=== PATIENT | female | born 1955 ===

== ENCOUNTER 2016-08-29 08:41 | Emergency (ER) | payer BC, OTHER ==
[2016-08-29 09:23] VITALS: RESP 17; O2SAT 97
[2016-08-29 10:39] VITALS: TEMP 98.4
--- NOTE | 2016-08-29 11:33 | C.PDOC ---
History Of Present Illness 61 yr old female presents to the ER stating 5 days ago she was seen by PMD for URI symptoms and a cough, had a CXR which was negative for pneumonia and was treated with a cough syrup, albuterol and prednisone. Patient states today was her first day back at work and was still cough, not feeling well and her right nostril started to bleeding. States she went to [place] where he blood pressure was found to be elevated. Patient states she has no history of HTN. By the time patient arrived to the ER the nose bleed had subsided. Patient denies fever, vision changes, chest pain, SOB, wheezing, nausea, vomiting, headache, dizziness, weakness or numbness. 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 Constitutional: Negative for: Fever Eyes: Negative for: Vision Change Cardiovascular: Negative for: Chest Pain Respiratory: Negative for: Shortness of Breath, Wheezing Gastrointestinal: Negative for: Nausea, Vomiting Neurological: Negative for: Weakness, Numbness, Headache, Dizziness Physical Exam - Physical Exam Appears: Well, Non-toxic, No Acute Distress Skin: Warm, Dry, No Rash Head: Atraumatic, Normacephalic Eye(s): bilateral: Normal Inspection, PERRL, EOMI Chest: Symmetrical, No Tenderness Cardiovascular: Rhythm Regular, No Murmur Respiratory: Normal Breath Sounds, No Rales, No Rhonchi, No Stridor, No Wheezing Extremity: Normal ROM, No Swelling Neurological/Psych: Oriented x3, Normal Speech, Normal Motor ED Course And Treatment O2 Sat by Pulse Oximetry: 97 Progress Note: Patient was observed in ED. Blood pressure was checked frequently and found to be going back down without intervention. Patient was informed the cough syrup might be the cause of elevated blood pressure and was instructed to stop it immediately. Prescribed new medication to the patient and gave extra days off from work. Instructed patient to follow up with PMD for further evaluation. Disposition - Disposition Disposition: HOME/ ROUTINE Disposition Time: 11:31 Condition: STABLE Additional Instructions: Folow upwith your PMD within 1-2 days. Return to ED if feel worse. Please stop taking Bromfed. Prescriptions: Chlorpheniramine/Dextromethorp [Coricidin Hbp Cough & Cold Tab] 2 tab PO Q6 #40 tablet Instructions: Nosebleed (ED) Forms: Work Excuse - Clinical Impression Clinical Impression: Nosebleed, Abnormal blood pressure - PA / EPIC ANALYST / Resident Statement MD/DO has reviewed & agrees with the documentation as recorded. - Scribe Statement The provider has reviewed the documentation as recorded by the Scribe Hollie Chaudhary All medical record entries made by the Scribe were at my direction and personally dictated by me. I have reviewed the chart and agree that the record accurately reflects my personal performance of the history, physical exam, medical decision making, and the department course for this patient. I have also personally directed, reviewed, and agree with the discharge instructions and disposition.
[2016-08-29 11:50] VITALS: BP 135/67; PULSE 72
== END 2016-08-29 11:52 | disposition home or self-care (01) ==
LOC: C.ER 08:41
DX: R04.0 Epistaxis (principal); R03.0 Elevated blood-pressure reading, without diagnosis of hypertension

== ENCOUNTER 2017-08-07 12:35 | Emergency (ER) | payer BC ==
[2017-08-07 13:00] LABS: SQUAMOUS EPITHIAL 4 /hpf (0-5); URINE BACTERIA RARE (<OCC); URINE BILIRUBIN NEGATIVE (NEGATIVE); URINE BLOOD NEGATIVE (NEGATIVE); URINE CLARITY Clear (Clear); URINE COLOR Straw (YELLOW); URINE GLUCOSE (UA) NORMAL (Normal); URINE LEUKOCYTE ESTERASE NEG Leu/uL (Negative); URINE PROTEIN NEGATIVE (NEGATIVE); URINE UROBILINOGEN NORMAL mg/dL (0.2-1.0)
[2017-08-07 13:18] VITALS: RESP 18
[2017-08-07 13:39] LABS: BASO % 0.5 % (0.0-2.0); EOS # 0.1 K/uL (0.0-0.7); EOS % 2.2 % (0.0-4.0); HEMOGLOBIN 13.3 g/dL (11.0-16.0); LYMPH # 1.7 K/uL (1.0-4.3); LYMPH % 25.7 % (20.0-40.0); MEAN CELL VOLUME 91.3 fL (81.0-99.0); MEAN CORPUSCULAR HEMOGLOBIN 32.9 pg (27.0-31.0); MEAN PLATELET VOLUME 7.9 fL (7.2-11.7); MONO # 0.4 K/uL (0.0-0.8); MONO % 5.8 % (0.0-10.0); NEUT # 4.3 K/uL (1.8-7.0); NEUT % 65.8 % (50.0-75.0); NRBC % 0.1 % (0.0-2.0); RBC 4.04 Mil/uL (3.80-5.20); RED CELL DISTRIBUTION WIDTH 12.3 % (11.5-14.5); WHITE BLOOD COUNT 6.5 K/uL (4.8-10.8)
[2017-08-07 13:51] LABS: ALB/GLOB RATIO 1.2 (1.0-2.1); ALBUMIN 4.3 g/dL (3.5-5.0); ALT/SGPT 64 U/L (9-52); AST/SGOT 47 U/L (14-36); BLOOD UREA NITROGEN 14 mg/dL (7-17); CALCIUM 9.5 mg/dl (8.6-10.4); GFR AFRICAN-AMERICAN > 60; GFR NON-AFRICAN AMERICAN > 60; LIPASE 85 U/L (23-300)
[2017-08-07] MEDS ORDERED: Lactated Ringer's 1,000 ML IVB STA (13:55)
[2017-08-07] MEDS ORDERED: Iodixanol 320 MG/ML 100 ML BOTTLE IV ONE (14:16)
--- NOTE | 2017-08-07 15:14 | CT ---
PROCEDURE: CT Abdomen and Pelvis with intravenous contrast HISTORY: Left lower quadrant abdominal pain. History of diverticulitis. COMPARISON: None. TECHNIQUE: Multiple contiguous axial images were performed through the abdomen and pelvis with the use of intravenous contrast. Subsequently, sagittal and coronal reformatted images were obtained. Radiation dose: Total exam DLP = 413 mGy-cm. This CT exam was performed using one or more of the following dose reduction techniques: Automated exposure control, adjustment of the mA and/or kV according to patient size, and/or use of iterative reconstruction technique. FINDINGS: LOWER THORAX: Unremarkable. LIVER: Fatty infiltration of the liver. GALLBLADDER AND BILE DUCTS: Contracted and or resected gallbladder. Clinical correlation. Prominent common bile duct. PANCREAS: Unremarkable. No gross lesion or ductal dilatation. SPLEEN: Splenule. ADRENALS: Unremarkable. No mass. KIDNEYS AND URETERS: Unremarkable. No hydronephrosis. No solid mass. VASCULATURE: Unremarkable. No aortic aneurysm. BOWEL: Extensive colonic diverticulosis most prominent at the level of the sigmoid colon. Focal thickening at the level of the mid sigmoid colon with some adjacent fat stranding. These changes may represent a focal acute diverticulitis versus focal colitis. Posttreatment followup would be helpful to its exclude underlying lesion. Correlation with colonoscopy posttreatment may be helpful. Under distended descending colon. APPENDIX: Unremarkable. Normal appendix. PERITONEUM: Unremarkable. No free fluid. No free air. LYMPH NODES: Few shotty para-aortic and inguinal lymph nodes. Few shotty mesenteric lymph nodes. BLADDER: Unremarkable. REPRODUCTIVE: Unremarkable. BONES: No acute fracture. OTHER FINDINGS: None. IMPRESSION: Extensive colonic diverticulosis most prominent at the level of the sigmoid colon. Focal thickening at the level of the mid sigmoid colon with some adjacent fat stranding. These changes may represent a focal acute diverticulitis versus focal colitis. Posttreatment followup would be helpful to its exclude underlying lesion. Correlation with colonoscopy posttreatment may be helpful. Under distended descending colon. Fatty infiltration of the liver. Contracted and or resected gallbladder. Clinical correlation. Prominent common bile duct. Additional findings as above.
[2017-08-07] MEDS ORDERED: Lactated Ringer's 1,000 ML ONE (15:22)
--- NOTE | 2017-08-07 17:02 | C.PDOC ---
Time Seen by Provider: 08/07/17 13:06 Chief Complaint (Nursing): Abdominal Pain History Per: Patient Onset/Duration Of Symptoms: Days (1) Current Symptoms Are (Timing): Still Present Severity: Moderate Location Of Pain/Discomfort: LLQ Quality Of Discomfort: "Pain" Alleviating Factors: None Additional History Per: Prior Records Abnormal Vaginal Bleeding: No Past Medical History Reviewed: Historical Data, Nursing Documentation, Vital Signs Vital Signs: Last Vital Signs Temp 98.3 F 08/07/17 13:17 Pulse 58 L 08/07/17 13:17 Resp 18 08/07/17 13:17 BP 129/84 08/07/17 13:17 Pulse Ox 96 08/07/17 13:17 - Medical History PMH: Hyperthyroidism Surgical History: Cholecystectomy Family History: States: Unknown Family Hx - Social History Hx Tobacco Use: No Hx Alcohol Use: No Hx Substance Use: No - Immunization History Hx Influenza Vaccination: No Hx Pneumococcal Vaccination: No Review Of Systems Except As Marked, All Systems Reviewed And Found Negative. Constitutional: Negative for: Fever Cardiovascular: Negative for: Chest Pain Respiratory: Negative for: Shortness of Breath Gastrointestinal: Positive for: Abdominal Pain. Negative for: Vomiting, Diarrhea, Melena, Hematochezia, Hematemesis Genitourinary: Negative for: Dysuria Musculoskeletal: Negative for: Neck Pain, Back Pain Skin: Negative for: Rash Neurological: Negative for: Weakness, Numbness Physical Exam - Physical Exam Appears: Non-toxic, No Acute Distress Skin: Normal Color, Warm, Dry, No Rash Head: Atraumatic, Normacephalic Eye(s): bilateral: Normal Inspection, PERRL, EOMI Neck: Normal ROM, Supple Cardiovascular: Rhythm Regular Respiratory: Normal Breath Sounds, No Accessory Muscle Use Gastrointestinal/Abdominal: Soft, Tenderness (LLQ) Back: No CVA Tenderness Extremity: Normal ROM Neurological/Psych: Oriented x3, Normal Motor, Normal Sensation ED Course And Treatment - Laboratory Results Result Diagrams: 08/07/17 13:32 08/07/17 13:32 Lab Interpretation: No Acute Changes O2 Sat by Pulse Oximetry: 96 Pulse Ox Interpretation: Normal - CT Scan/US CT abd/pelv Other Rad Studies (CT/US): Read By Radiologist, Radiology Report Reviewed CT/US Interpretation: IMPRESSION: Extensive colonic diverticulosis most prominent at the level of the sigmoid colon. Focal thickening at the level of the mid sigmoid colon with some adjacent fat stranding. These changes may represent a focal acute diverticulitis versus focal colitis. Posttreatment followup would be helpful to its exclude underlying lesion. Correlation with colonoscopy posttreatment may be helpful. Under distended descending colon. Fatty infiltration of the liver. Contracted and or resected gallbladder. Clinical correlation. Prominent common bile duct. Additional findings as above. Progress Note: Pt is requesting outpatient treatment. Pt will be treated with PO antibiotics, but instructed to return for admission if not improving or any worsening. Reassessment Condition: Improved Disposition Counseled Patient/Family Regarding: Studies Performed, Diagnosis, Need For Followup, Rx Given - Disposition Disposition: HOME/ ROUTINE Disposition Time: 17:04 Condition: STABLE Additional Instructions: Follow up with your doctor this week. Return to the ER if you develop fever, vomiting, worsening of symptoms or if you have any other concerns. Prescriptions: Ciprofloxacin [Cipro] 1 tab PO BID #20 tab Metronidazole [Flagyl] 500 mg PO TID #30 tablet Instructions: Diverticulitis (DC) Forms: [employer] (Pashto) - Clinical Impression Clinical Impression: Diverticulitis
[2017-08-07 17:59] VITALS: BP 118/70; PULSE 62; TEMP 98.4; O2SAT 97
== END 2017-08-07 17:15 | disposition home or self-care (01) ==
LOC: C.ER 12:35
DX: K57.32 Diverticulitis of large intestine without perforation or abscess without bleeding (principal)
CPT/HCPCS: 74177; 80053; 81001; 83690; 85025; 87086; 96374; 99285; J1885; J7120; Q9967

== ENCOUNTER 2018-03-12 08:07 | Emergency (ER) | payer BC, OTHER ==
[2018-03-12 08:20] VITALS: BMI 29.7
--- NOTE | 2018-03-12 09:54 | C.PDOC ---
History Of Present Illness 62 years old female, Employee of [employer], presents to ED for complaints of tingling sensation and pain to bilateral knees s/p slipped and fell on both knees today before 7AM. Denies any other complaints. Patient states she is up to date with Tetanus shot (x2 years ago). Chief Complaint (Nursing): Lower Extremity Problem/Injury History Per: Patient History/Exam Limitations: no limitations Onset/Duration Of Symptoms: Hrs Current Symptoms Are (Timing): Still Present Recent travel outside of the [place]: No - Knee Description Of Injury: Fell Past Medical History Reviewed: Historical Data, Nursing Documentation, Vital Signs Vital Signs: Last Vital Signs Temp 98.3 F 03/12/18 08:18 Pulse 70 03/12/18 08:18 Resp 20 03/12/18 08:18 BP 132/77 03/12/18 08:18 Pulse Ox 97 03/12/18 08:18 - Medical History PMH: Hyperthyroidism, Sleep Apnea Surgical History: Cholecystectomy Family History: States: Unknown Family Hx - Social History Hx Tobacco Use: No Hx Alcohol Use: No Hx Substance Use: No - Immunization History Hx Tetanus Toxoid Vaccination: Yes (2014) Hx Influenza Vaccination: No Hx Pneumococcal Vaccination: No Review Of Systems Constitutional: Negative for: Fever, Chills Gastrointestinal: Negative for: Nausea, Vomiting, Diarrhea Musculoskeletal: Positive for: Other (Bilateral knee pain and tingling sensation ) Skin: Negative for: Rash Neurological: Negative for: Weakness Physical Exam - Physical Exam Appears: Well, Non-toxic, No Acute Distress Skin: Normal Color, Warm, Dry, No Rash, Other Head: Atraumatic, Normacephalic Eye(s): bilateral: Normal Inspection, PERRL, EOMI Oral Mucosa: Moist Neck: Normal ROM, Supple Chest: Symmetrical, No Tenderness Cardiovascular: Rhythm Regular, No Murmur Respiratory: Normal Breath Sounds, No Rales, No Rhonchi, No Wheezing Gastrointestinal/Abdominal: Soft, No Tenderness Extremity: Normal ROM, Tenderness (Right knee tender to palpation. ), Other (Small superficial abrasion to left knee. ) Neurological/Psych: Oriented x3, Normal Speech Gait: Steady ED Course And Treatment O2 Sat by Pulse Oximetry: 97 (RA) Pulse Ox Interpretation: Normal - Other Rad Knee X-Ray X-Ray: Viewed By Me, Read By Radiologist Interpretation: Date of service: 03/12/2018. PROCEDURE: Bilateral Knee Radiographs. HISTORY: fall. COMPARISON: None. FINDINGS: BONES: Bone alignment and mineralization are normal. There is no acute displaced fracture or bone destruction. JOINTS: There is mild tricompartmental degenerative osteoarthrosis with reduced joint spaces, marginal osteophytes and tibial spiking, worse in the medial compartment. SOFT TISSUES: Right Knee: Normal. Left Knee: Normal. JOINT EFFUSION: Right Knee: None. Left Knee: None. OTHER FINDINGS: None. IMPRESSION: No acute fracture or dislocation. Mild tricompartmental degenerative osteoarthrosis, worse in the medial compartments. Progress Note: Administered Motrin. Ordered Knee X-Ray with no acute pathology. b/l knee braces were applied. patient is stable to be d/c home with PMD and Ortho follow up. Disposition - Disposition Referrals: Pancho Gregg MD [Staff Provider] - Disposition: HOME/ ROUTINE Disposition Time: 11:00 Condition: STABLE Additional Instructions: Follow up with Orthopedist and [facility] within 2-3 days. Return to ED if feel worse. Prescriptions: Ibuprofen [Motrin Tab] 600 mg PO Q8 #30 tab Instructions: Knee Sprain (DC), Skin Abrasions (DC) Forms: [employer] (Maldivian), Work Excuse - Clinical Impression Clinical Impression: Contusion of right knee, Contusion of knee, left, Abrasion of knee, right - PA / HI LO DRIVER / Resident Statement MD/DO has reviewed & agrees with the documentation as recorded. - Scribe Statement The provider has reviewed the documentation as recorded by the Laureenibmukul Hemphill All medical record entries made by the Laureenibmukul were at my direction and personally dictated by me. I have reviewed the chart and agree that the record accurately reflects my personal performance of the history, physical exam, medical decision making, and the department course for this patient. I have also personally directed, reviewed, and agree with the discharge instructions and disposition.
--- NOTE | 2018-03-12 10:57 | RAD ---
Date of service: 03/12/2018 PROCEDURE: Bilateral Knee Radiographs. HISTORY: fall COMPARISON: None. FINDINGS: BONES: Bone alignment and mineralization are normal. There is no acute displaced fracture or bone destruction. JOINTS: There is mild tricompartmental degenerative osteoarthrosis with reduced joint spaces, marginal osteophytes and tibial spiking, worse in the medial compartment. SOFT TISSUES: Right Knee: Normal. Left Knee: Normal. JOINT EFFUSION: Right Knee: None. Left Knee: None. OTHER FINDINGS: None. IMPRESSION: No acute fracture or dislocation. Mild tricompartmental degenerative osteoarthrosis, worse in the medial compartments.
[2018-03-12 11:11] VITALS: BP 163/95; PULSE 64; RESP 18; TEMP 98.6
[2018-03-12 11:14] VITALS: O2SAT 97
== END 2018-03-12 11:21 | disposition home or self-care (01) ==
LOC: C.ER 08:07
DX: S80.02XA Contusion of left knee, initial encounter (principal); S80.01XA Contusion of right knee, initial encounter; S80.211A Abrasion, right knee, initial encounter; W01.0XXA Fall on same level from slipping, tripping and stumbling without subsequent striking against object, initial encounter